=== PATIENT | male | born 1980 | race African-American/Black ===

== ENCOUNTER 2017-08-08 12:59 | Outpatient (CLI) | payer OTHER | END 2017-08-08 13:03 | disposition short-term general hospital (02) | LOC: AMB 12:59 | DX: S01.112A Laceration without foreign body of left eyelid and periocular area, initial encounter (principal); S01.81XA Laceration without foreign body of other part of head, initial encounter; Y00.XXXA Assault by blunt object, initial encounter; Y93.89 Activity, other specified; Y92.89 Other specified places as the place of occurrence of the external cause; Y99.8 Other external cause status | CPT/HCPCS: A0425; A0427 ==

== ENCOUNTER 2017-08-08 13:05 | Emergency (ER) | payer OTHER ==
[~2017-08-08] VITALS: Ht 162.6 cm; Wt 69.9 kg
[2017-08-08 13:25] LABS: PLATELET COUNT 266 K/uL (142-355)
[2017-08-08 13:33] LABS: POTASSIUM 3.3 mmol/L (3.6-5.2)
[2017-08-08 15:16] VITALS: BP 129/79; TEMP 97.7
== END 2017-08-08 15:49 | disposition short-term general hospital (02) ==
LOC: ED 13:05
DX: S06.6X0A Traumatic subarachnoid hemorrhage without loss of consciousness, initial encounter (principal); S01.112A Laceration without foreign body of left eyelid and periocular area, initial encounter; Y00.XXXA Assault by blunt object, initial encounter
CPT/HCPCS: 80053; 80307; 80320; 85027; 99285